=== PATIENT | female | born 1995 | race Caucasian/White ===

== ENCOUNTER 2023-05-20 07:51 | Inpatient (IN) | payer OTHER ==
[2023-05-20] MEDS ORDERED: Nubain 10 MG/ML IV PRN (16:00)
[2023-05-20] MEDS ORDERED: Zofran 4 MG/2 ML VIAL IV PRN (16:00)
[2023-05-20 16:22] LABS: Absolute Neutrophil Ct (ANC) 8.04 x10^3/uL (1.4-6.9); BASOPHIL % 0.2 % (0.0-0.4); Basophil (Absolute #) 0.02 x10^3/uL (0-0.4); Eosinophil % 0.5 % (0.00-5.0); Eosinophil (Absolute #) 0.05 x10^3/uL (0-0.5); Hematocrit 33.1 % (35-47); Hemoglobin 10.4 g/dL (12.0-16.0); IMMATURE GRAN % 0.9 % (0.00-0.4); Lymphocyte (Absolute #) 1.82 x10^3/uL (1.0-4.6); Lymphocytes % 17.3 % (24.0-44.0); Mean Cell Volume 82.8 fL (78-100); Mean Corpuscular Hgb Concent. 31.4 g/dL (32-36); Monocyte (Absolute #) 0.51 x10^3/uL (0.0-1.3); Monocytes % 4.8 % (0.0-12.0); Neutrophil % 76.3 % (36.0-66.0); Platelet Count 198 x10^3/uL (150-450); Red Cell Distribution Width 13.1 % (11.5-14.0); White Blood Count 10.5 x10^3/uL (4.0-10.5)
[2023-05-20] MEDS: CYTOTEC PO SCH ×4 (16:46→23:44)
[2023-05-20 17:24] LABS: ABO TYPING O; Antibody Screen NEGATIVE (NEGATIVE); RH TYPING POSITIVE
[2023-05-20 18:50] LABS: Amphetamine,Urine NEGATIVE (NEGATIVE); Barbiturate,Urine NEGATIVE (NEGATIVE); Benzodiazepine,Urine NEGATIVE (NEGATIVE); Cocaine,Urine NEGATIVE (NEGATIVE); Methadone,Urine NEGATIVE (NEGATIVE); Opiate,Urine NEGATIVE (NEGATIVE); PCP,Urine NEGATIVE (NEGATIVE); THC,Urine NEGATIVE (NEGATIVE)
[2023-05-21] MEDS ORDERED: Lactated Ringers 1,000 ML IV ONE ×2 (01:44→06:00)
[2023-05-21] MEDS: Lactated Ringers 1,000 ML IV SCH ×2 (01:45→13:58)
[2023-05-21] MEDS: CLINDAMYCIN-D5W 900 MG/50 ML*** 900 MG/50 ML BAG IV SCH ×2 (01:45→10:10)
[2023-05-21] MEDS: CYTOTEC PO SCH ×3 (01:45→05:55)
[2023-05-21] MEDS ORDERED: FENTANYL 2 MCG-BUPIV 0.125%-NS 250 ML Epidur 250 ML EPIDURAL SCH (06:00)
[2023-05-21] MEDS ORDERED: Ephedrine Sulfate 50 MG/ML IV PRN (06:00)
[2023-05-21] MEDS ORDERED: PITOCIN 30 UNITS/ LR 500 ML 30 UNITS/500 ML PLAST..BAG IV SCH ×2 (07:00→08:00)
[2023-05-21] MEDS ORDERED: XYLOCAINE 1% HCL 20 ML MDV IJ PRN (08:00)
[2023-05-21] MEDS ORDERED: TUCKS TP PRN (11:03)
[2023-05-21] MEDS ORDERED: LANSINOH 40 GM TOP PRN (11:03)
[2023-05-21 11:09] LABS: Appearance CLEAR (CLEAR); Bilirubin NEGATIVE (NEGATIVE); Glucose NEGATIVE (NEGATIVE); Ketones NEGATIVE (NEGATIVE); Nitrite NEGATIVE (NEGATIVE); Protein,Urine Dip NEGATIVE (Negative); RBC NEGATIVE Ery/ul (0-5); Urobilinogen 0.2 mg/dL (0-1)
[2023-05-21 11:21] LABS: Bacteria None Seen /HPF (None Seen); Epithelial Cells None Seen /HPF (None Seen); Hyaline Casts NONE SEEN /LPF (0-2); RBC 0-2 /HPF (0-5); WBC 0-2 /HPF (0-5)
[2023-05-21 11:22] LABS: ADD URINE CULTURE? ORDERED SEPARATELY (NO)
[2023-05-21] MEDS: MOTRIN 400 MG PO PRN ×2 (15:16→20:58)
[2023-05-21] MEDS ORDERED: Dermoplast Spray TP PRN (18:00)
[2023-05-22 05:10] LABS: Absolute Neutrophil Ct (ANC) 8.25 x10^3/uL (1.4-6.9); BASOPHIL % 0.2 % (0.0-0.4); Basophil (Absolute #) 0.02 x10^3/uL (0-0.4); Eosinophil % 0.7 % (0.00-5.0); Eosinophil (Absolute #) 0.08 x10^3/uL (0-0.5); Hematocrit 28.3 % (35-47); Hemoglobin 8.8 g/dL (12.0-16.0); IMMATURE GRAN # 0.07 x10^3u/L (0.00-0.03); IMMATURE GRAN % 0.6 % (0.00-0.4); Lymphocyte (Absolute #) 1.95 x10^3/uL (1.0-4.6); Lymphocytes % 17.7 % (24.0-44.0); Mean Cell Volume 84.2 fL (78-100); Mean Corpuscular Hemoglobin 26.2 pg (26-32); Mean Corpuscular Hgb Concent. 31.1 g/dL (32-36); Mean Platelet Volume 11.8 fL (7.5-11.0); Monocyte (Absolute #) 0.63 x10^3/uL (0.0-1.3); Monocytes % 5.7 % (0.0-12.0); Neutrophil % 75.1 % (36.0-66.0); Platelet Count 166 x10^3/uL (150-450); Red Blood Count 3.36 x10^6/uL (4.1-5.4); Red Cell Distribution Width 13.3 % (11.5-14.0)
[2023-05-22] MEDS: MOTRIN 400 MG PO PRN ×2 (07:11→15:25)
--- NOTE | 2023-05-22 07:31 | PCM.NOTE ---
Date and Time: 05/22/23729 Subjective Assessment: ppd 1 sp pt resting in bed and doing well able to ambulate and tolerate diet vss afebrile abd; soft uterus; firm lochia; mild a/p sp ppd 1 dc home tomorrow fu office 3 wks OBJECTIVE DATA Vital Signs: Vital Signs - 24 hr Temp Pulse Resp BP BP Pulse Ox 05/22/23 04:00 98.2 F 84 16 99/58 98 05/21/23 20:00 98.1 F 97 H 17 123/69 97 05/21/23 18:00 96 H 18 118/72 96 05/21/23 17:00 93 H 18 124/73 97 05/21/23 16:00 96 H 18 122/75 97 05/21/23 15:45 102 H 18 126/57 97 05/21/23 15:30 101 H 18 149/66 97 05/21/23 15:15 106 H 20 152/87 98 05/21/23 15:00 103 H 20 121/68 97 05/21/23 14:30 99 H 20 127/81 05/21/23 14:15 20 05/21/23 14:00 20 05/21/23 13:45 96 H 20 129/78 05/21/23 13:30 96 H 20 130/77 05/21/23 13:15 95 H 20 126/72 05/21/23 13:00 90 20 126/75 05/21/23 12:45 95 H 20 121/75 05/21/23 12:30 81 18 107/58 05/21/23 12:15 79 18 100/52 05/21/23 12:00 93 H 18 123/73 123/73 05/21/23 11:45 82 18 122/73 05/21/23 11:30 91 H 18 112/68 05/21/23 11:15 81 18 118/71 05/21/23 11:00 84 18 121/69 05/21/23 10:45 82 18 126/70 05/21/23 10:30 86 18 125/77 05/21/23 10:15 87 18 113/68 99 05/21/23 10:00 88 18 113/67 98 05/21/23 09:45 85 18 111/60 98 05/21/23 09:30 100 H 20 126/89 97 05/21/23 09:15 81 20 121/77 98 05/21/23 09:00 91 H 20 130/79 99 05/21/23 08:45 104 H 20 118/83 96 05/21/23 08:30 83 20 113/68 98 05/21/23 08:00 98.4 F 83 20 113/68 113/68 98 Pain Assessment - Last Documented Pain Intensity [Lower] 2 Pain Intensity 0 Pain Scale Used 0-10 Pain Scale Intake and Output: Intake & Output 05/19/23 05/20/23 05/21/23 05/22/23 11:59 11:59 11:59 11:59 Intake Total 3100 1975 Output Total 300 1350 Balance 2800 625 Weight 135.624 kg Lab Results: Lab Results-Last 24 Hours 05/21/23 05/22/23 Range/Units 11:00 04:20 WBC 11.0 H (4.0-10.5) x10^3/uL RBC 3.36 L (4.1-5.4) x10^6/uL Hgb 8.8 L (12.0-16.0) g/dL Hct 28.3 L (35-47) % MCV 84.2 (78-100) fL MCH 26.2 (26-32) pg MCHC 31.1 L (32-36) g/dL RDW 13.3 (11.5-14.0) % Plt Count 166 (150-450) x10^3/uL MPV 11.8 H (7.5-11.0) fL Gran % 75.1 H (36.0-66.0) % Immature Gran % (Auto) 0.6 H (0.00-0.4) % Nucleat RBC Rel Count 0.0 (0.00-0.1) % Eos # (Auto) 0.08 (0-0.5) x10^3/uL Immature Gran # (Auto) 0.07 H (0.00-0.03) x10^3u/L Absolute Lymphs (auto) 1.95 (1.0-4.6) x10^3/uL Absolute Monos (auto) 0.63 (0.0-1.3) x10^3/uL Absolute Nucleated RBC 0.00 (0.00-0.01) x10^3u/L Lymphocytes % 17.7 L (24.0-44.0) % Monocytes % 5.7 (0.0-12.0) % Eosinophils % 0.7 (0.00-5.0) % Basophils % 0.2 (0.0-0.4) % Absolute Granulocytes 8.25 H (1.4-6.9) x10^3/uL Basophils # 0.02 (0-0.4) x10^3/uL Urine Color YELLOW (YELLOW) Urine Appearance CLEAR (CLEAR) Urine pH 7.0 (5-6) Ur Specific [place] 1.010 (1.005-1.025) Urine Protein Cancelled POC Urine Protein Conf NEGATIVE (Negative) Urine Glucose (UA) Cancelled Urine Ketones NEGATIVE (NEGATIVE) Urine Blood Cancelled Urine Nitrite NEGATIVE (NEGATIVE) Urine Bilirubin NEGATIVE (NEGATIVE) Urine Urobilinogen 0.2 (0-1) mg/dL Ur Leukocyte Esterase Cancelled Urine Leukocytes NEGATIVE (NEGATIVE) U Hyaline Cast (Auto) NONE SEEN (0-2) /LPF Urine RBC NEGATIVE (0-5) Dameon/ul Urine Microscopic RBC 0-2 (0-5) /HPF Urine Microscopic WBC 0-2 (0-5) /HPF Ur Epithelial Cells None Seen (None Seen) /HPF Urine Bacteria None Seen (None Seen) /HPF Urine Culture Reflexed ORDERED SEPARATELY (NO) Urine Glucose NEGATIVE (NEGATIVE) mg/dL Assessment/Plan (1) Vaginal delivery Current Visit: Yes Status: Acute Code(s): O80 - ENCOUNTER FOR FULL-TERM UNCOMPLICATED DELIVERY
--- NOTE | 2023-05-22 07:34 | PCM.DS ---
Discharge Summary Date of Admission: 05/21/23 07:51 Admitting Physician: LIZ TIDWELL DO Consults: Consults on Case 05/21/23 06:00 Notify Anesthesia Provider PRN Primary Care Provider: NO FAMILY DOCTOR Allergies Allergies Penicillins Allergy (Mild, Verified 05/21/23 10:59) Rash Hospital Summary - Hospital Course Hospital Course: pt admitted on may 20 for lewis induction with oral cytotec at 39 3/7 wks gestation and subsequently underwent pitocin augmentation on may 21 and delivered live baby boy via without complication on . during period did well able to ambulate and tolerate diet with stable hgb at 8.8 and was given rx of iron sulfate bid. pt advised to fu in office in 3 wks for care. all questions answered to her satisfaction as she is stable for discharge on may 23. - Vitals & Intake/Output Vital Signs: Vital Signs Temperature 98.2 F 05/22/23 04:00 Pulse Rate 84 05/22/23 04:00 Respiratory Rate 16 05/22/23 04:00 Blood Pressure 99/58 05/22/23 04:00 O2 Sat by Pulse Oximetry 98 05/22/23 04:00 Intake & Output: Intake & Output 05/19/23 05/20/23 05/21/23 05/22/23 11:59 11:59 11:59 11:59 Intake Total 3100 1975 Output Total 300 1350 Balance 2800 625 Weight 135.624 kg - Lab Result Diagrams: 05/22/23 04:20 Lab Results-Last 24 Hrs: Lab Results-Last 24 Hours 05/21/23 05/22/23 Range/Units 11:00 04:20 WBC 11.0 H (4.0-10.5) x10^3/uL RBC 3.36 L (4.1-5.4) x10^6/uL Hgb 8.8 L (12.0-16.0) g/dL Hct 28.3 L (35-47) % MCV 84.2 (78-100) fL MCH 26.2 (26-32) pg MCHC 31.1 L (32-36) g/dL RDW 13.3 (11.5-14.0) % Plt Count 166 (150-450) x10^3/uL MPV 11.8 H (7.5-11.0) fL Gran % 75.1 H (36.0-66.0) % Immature Gran % (Auto) 0.6 H (0.00-0.4) % Nucleat RBC Rel Count 0.0 (0.00-0.1) % Eos # (Auto) 0.08 (0-0.5) x10^3/uL Immature Gran # (Auto) 0.07 H (0.00-0.03) x10^3u/L Absolute Lymphs (auto) 1.95 (1.0-4.6) x10^3/uL Absolute Monos (auto) 0.63 (0.0-1.3) x10^3/uL Absolute Nucleated RBC 0.00 (0.00-0.01) x10^3u/L Lymphocytes % 17.7 L (24.0-44.0) % Monocytes % 5.7 (0.0-12.0) % Eosinophils % 0.7 (0.00-5.0) % Basophils % 0.2 (0.0-0.4) % Absolute Granulocytes 8.25 H (1.4-6.9) x10^3/uL Basophils # 0.02 (0-0.4) x10^3/uL Urine Color YELLOW (YELLOW) Urine Appearance CLEAR (CLEAR) Urine pH 7.0 (5-6) Ur Specific [place] 1.010 (1.005-1.025) Urine Protein Cancelled POC Urine Protein Conf NEGATIVE (Negative) Urine Glucose (UA) Cancelled Urine Ketones NEGATIVE (NEGATIVE) Urine Blood Cancelled Urine Nitrite NEGATIVE (NEGATIVE) Urine Bilirubin NEGATIVE (NEGATIVE) Urine Urobilinogen 0.2 (0-1) mg/dL Ur Leukocyte Esterase Cancelled Urine Leukocytes NEGATIVE (NEGATIVE) U Hyaline Cast (Auto) NONE SEEN (0-2) /LPF Urine RBC NEGATIVE (0-5) Dameon/ul Urine Microscopic RBC 0-2 (0-5) /HPF Urine Microscopic WBC 0-2 (0-5) /HPF Ur Epithelial Cells None Seen (None Seen) /HPF Urine Bacteria None Seen (None Seen) /HPF Urine Culture Reflexed ORDERED SEPARATELY (NO) Urine Glucose NEGATIVE (NEGATIVE) mg/dL Micro Results-Entire Visit: Microbiology 05/21/23 11:00 Urine Culture - Preliminary Catherized NO GROWTH TO DATE Final Diagnosis/Problem List - Final Discharge Diagnosis/Problem (1) Vaginal delivery Current Visit: Yes Status: Acute Code(s): O80 - ENCOUNTER FOR FULL-TERM UNCOMPLICATED DELIVERY - Discharge Disposition: Home, Self-Care Condition: Stable Prescriptions: New Ferrous Sulfate 325 mg [Feosol 325 mg] 325 mg PO BID #60 tablet No Action Aspirin EC 81 mg [Ecotrin 81 mg] 81 mg PO DAILY Pnv No.95/Ferrous Fum/Folic AC [ Caplet] 1 each PO DAILY Follow up with: DOCTOR,NO FAMILY [Primary Care Provider] - LIZ TIDWELL DO [ACTIVE STAFF] - 3 weeks
[2023-05-22] MEDS: TYLENOL EXTRA STRENGTH 500 MG PO PRN ×2 (09:50→21:20)
[2023-05-22] MEDS: Docusate Sodium 100 MG PO SCH ×2 (09:51→21:20)
[2023-05-22] MEDS ORDERED: FERREX 150 PO SCH (10:00)
[2023-05-22] MEDS ORDERED: Adacel Vial IM ONE (11:03)
[2023-05-23] MEDS: MOTRIN 400 MG PO PRN (04:06)
[2023-05-23 04:16] VITALS: O2SAT 98
[2023-05-23] MEDS: TYLENOL EXTRA STRENGTH 500 MG PO PRN (08:20)
[2023-05-23 10:54] VITALS: BP 134/63; PULSE 112; RESP 18; TEMP 99.5
== END 2023-05-23 13:50 | disposition home or self-care (01) | DRG 807 ==
LOC: OB 07:51 → OBSVTOIN 05-21 07:51
PROVIDERS: ADMIT Obstetrics & Gynecology; ATTEND Obstetrics & Gynecology
PROC: 10E0XZZ Delivery of Products of Conception, External Approach (ICD-10-PCS; principal; 2023-05-21)
PROC: 0KQM0ZZ Repair Perineum Muscle, Open Approach (ICD-10-PCS; 2023-05-21)
DX: O70.1 Second degree perineal laceration during delivery (principal); Z37.0 Single live birth; Z3A.39 39 weeks gestation of pregnancy; Z20.828 Contact with and (suspected) exposure to other viral communicable diseases
CPT/HCPCS: 36415; 80307; 81015; 85025; 86850; 86900; 86901; 87086; 90715; 96372; G0378; G0379; J2590; A9270-GY